=== PATIENT | female | born 1955 | race Caucasian/White ===

== ENCOUNTER 2022-12-16 14:00 | Outpatient (RCR) | payer OTHER, SELFPAY | END 2023-04-15 23:59 | disposition home or self-care (01) | PROVIDERS: PCP Family Medicine; Visit Provider Family Medicine | DX: M25.531 Pain in right wrist (principal); M79.644 Pain in right finger(s); G89.29 Other chronic pain; Z51.89 Encounter for other specified aftercare | CPT/HCPCS: 97035; 97140; 97165; L3806 ==

== ENCOUNTER 2023-04-20 09:55 | Emergency (ER) | payer OTHER, SELFPAY ==
[2023-04-20 09:58] VITALS: BP 165/83; PULSE 62; RESP 18; TEMP 36.8; O2SAT 98; BMI 32.6
--- NOTE | 2023-04-20 10:41 | CRLHL7_ITS ---
For Patients: As a result of the Century Cures Act, medical imaging exams and procedure reports are released immediately into your electronic medical record. You may view this report before your referring provider. If you have questions, please contact your health care provider. INDICATION: Leg pain and swelling. TECHNIQUE: Ultrasound venous duplex lower left extremity. Compression venous exam was performed using hernandez-scale, color Doppler, and spectral Doppler analysis. COMPARISON: None. FINDINGS: Deep veins: Sonographic imaging demonstrates the left common femoral, deep femoral, superficial femoral, popliteal, posterior tibial and the contralateral right common femoral veins to be fully compressible with normal color Doppler blood flow. Superficial veins: Greater saphenous vein is fully compressible. No popliteal cyst. IMPRESSION: Normal left lower extremity venous ultrasound, no sign of deep venous thrombosis. Dictated by Yomi Grande MD @ 04/20/2023 11:56:18 AM (Electronically Signed)
--- NOTE | 2023-04-20 11:12 | ED_ITS ---
HPI - Extremity Injury (Lower) General Date Seen: 04/20/23 Chief Complaint: Extremity Pain/Injury, Lower Stated Complaint: pain in lower left leg Time Seen by Provider: 04/20/23 09:59 Source: patient and family Mode of arrival: ambulatory Limitations: no limitations History of Present Illness HPI Narrative: Patient is a very nice 68-year-old female presents here for evaluation of a left lower leg pain, it comes and goes, worse when she starts to walk but then gets better. She called her insurance carrier and [facility] today and they directed to the ER as they were worried about a clot, she has had no swelling associated with this, she has had a couple longer trips, that she has flown in the last 4 weeks, the discomfort it has been going on for the last 4-6 weeks. She has been told in the past she has peripheral arterial disease. But has never had this looked at. Denies any falls or injury associated with this able to walk around bear weight normally is not taking any medications for this, no past history of previous DVTs pulmonary emboli she has no family history of any blood disorders is on no anticoagulants other than Plavix. Does have a history of hypertension. Denies a history of chest pain shortness of breath syncope, or heart racing. Related Data Home Medications Medication Instructions Recorded Confirmed atorvastatin 20 mg tablet 20 mg PO DAILY 04/20/23 04/20/23 Allergies Allergy/AdvReac Type Severity Reaction Status Date / Time Penicillins Allergy Verified 04/20/23 10:01 Sulfa (Sulfonamide Allergy Verified 04/20/23 10:01 Antibiotics) Review of Systems Status of ROS: Reports: 10 or more systems reviewed and unremarkable except as noted in History and below [facility] Social History Do you use any of these nicotine containing products: None Exam Narrative: Exam Narrative: Patient is a very nice lady appears to be in no apparent distress walking around the room she has normal legs bilaterally with excellent muscle bulk noted. Full extension of her left knee in flexion her hip has normal range of motion. DP and posterior tibial pulses are normal in her left lower leg. In comparison to the right. No trophic changes are noted over her foot, and she has hair growth. I do not see any edema. Const: Vital Signs, click to edit/add: Vital Signs - 24 hr 04/20/23 09:58 Temperature 98.3 F Pulse Rate [Right Pulse Oximeter] 62 Respiratory Rate 18 Blood Pressure [Ri ght Upper Arm] 165/83 H Pulse Oximetry 98 Oxygen Delivery Me thod Room Air Documenting provider has reviewed patient's vital signs: yes Course Course Hospital Course: Reviewed with patient that this x-rays are negative, ultrasound was negative also. Under if this is a variation of phillips splints, and follow-up with primary care suggested. Vital Signs Vital signs: Initial Vital Signs Temperature 98.3 F 04/20/23 09:58 Temperature Source Temporal Artery Scan 04/20/23 09:58 Pulse Rate 62 04/20/23 09:58 Respiratory Rate 18 04/20/23 09:58 Blood Pressure 165/83 H 04/20/23 09:58 Blood Pressure Mean 110 H 04/20/23 09:58 Blood Pressure Position Sitting 04/20/23 09:58 Pulse Oximetry 98 04/20/23 09:58 Oxygen Delivery Method Room Air 04/20/23 09:58 Vital Signs Temperature 98.3 F 04/20/23 09:58 Pulse Rate 62 04/20/23 09:58 Respiratory Rate 18 04/20/23 09:58 Blood Pressure 165/83 H 04/20/23 09:58 Pulse Oximetry 98 04/20/23 09:58 Oxygen Delivery Method Room Air 04/20/23 09:58 Temperature 98.3 F 04/20/23 09:58 Pulse Rate 62 04/20/23 09:58 Respiratory Rate 18 04/20/23 09:58 Blood Pressure 165/83 H 04/20/23 09:58 Pulse Oximetry 98 04/20/23 09:58 Oxygen Delivery Method Room Air 04/20/23 09:58 MDM - Extremity Injury (Lower) MDM Narrative Medical decision making narrative: Going to her that is unlikely to be a DVT, she is able to bear weight walk, he probably should do an x-ray also. Differential Diagnosis Differential diagnosis: Likely ankle sprain and strain and fracture of femur Medical Records Attestation: I reviewed the patient's medical records. Imaging Data Tib fib : Radiologist's impression: Patient: JOSELINE AMBROSE Facility: [facility] . Site : 1955 Study: XRay Extremity Right TIBIA FIBULA 2V-04/20/2023 11:32:23 AM Ordering Physician: Zari Carrera Final Report: Indication: Injury, pain, evaluate for stress fracture Technique: Two views left tibia and fibula Comparison: None Findings: Plantar calcaneal spur is present. There is no joint effusion at the tibiotalar joint. The mortise is intact. Mild degenerative spurring at the medial co mpartment of the knee. No intrinsic osseous lesion or periostitis. No fracture. Impression: No evidence of stress fracture. Dictated by Jose Heredia MD @ 04/20/2023 11:59:27 AM (Electronic Signature) Patient: JOSELINE AMBROSE Facility: [facility] . Site : 1955 Study: US Extremity Left LEV LT-04/20/2023 11:23:35 AM Ordering Physician: Zari Carrera Final Report: INDICATION: Leg pain and swelling. TECHNIQUE: Ultrasound venous duplex lower left extremity. Compression venous exam was performed using hernandez-scale, color Doppler, and spectral Doppler analysis. COMPARISON: None. FINDINGS: Deep veins: Sonographic imaging demonstrates the left common femoral, deep femoral, superficial femoral, popliteal, posterior tibial and the contralateral right common femoral veins to be fully compressible with normal color Doppler blood flow. Superficial veins: Greater saphenous vein is fully compressible. No popliteal cyst. IMPRESSION: Normal left lower extremity venous ultrasound, no sign of deep venous thrombosis. Discharge Plan Discharge Clinical Impression: Left leg pain Patient Disposition: Home, Self-Care Condition: Stable Instructions: Leg Pain (ED) Additional Instructions: Home rest follow-up with primary care no evidence of abnormality on x-ray or ultrasound. Suspect this is muscle related. Prescriptions: No Action atorvastatin 20 mg tablet 20 mg PO DAILY Follow Up/Referrals: Evette Mora MD [Primary Care Provider] - Stand Alone Forms: [employer] Info Instructions
--- NOTE | 2023-04-20 11:16 | CRLHL7_ITS ---
For Patients: As a result of the Cures Act, medical imaging exams and procedure reports are released immediately into your electronic medical record. You may view this report before your referring provider. If you have questions, please contact your health care provider. Indication: Injury, pain, evaluate for stress fracture Technique: Two views left tibia and fibula Comparison: None Findings: Plantar calcaneal spur is present. There is no joint effusion at the tibiotalar joint. The mortise is intact. Mild degenerative spurring at the medial compartment of the knee. No intrinsic osseous lesion or periostitis. No fracture. Impression: No evidence of stress fracture. Dictated by Jose Heredia MD @ 04/20/2023 11:59:27 AM (Electronically Signed)
== END 2023-04-20 13:10 | disposition home or self-care (01) ==
PROVIDERS: Emergency Provider Family Medicine; PCP Family Medicine
DX: M79.605 Pain in left leg (principal)
CPT/HCPCS: 73590; 93971; 99283; 99284

== ENCOUNTER 2024-02-07 12:11 | Outpatient (CLI) | payer MEDICARE, SELFPAY ==
--- OUTSIDE RECORDS SUMMARY | 2024-02-07 12:16 | XMS_ITS | Data Portability ---
Author Name Unknown Address [address] [place] [address] Phone [phone] Organization [place] - .[facility], [facility] Address [address] [place] [address] Assessment Encounter Date Assessment Date Assessment LastModified by Organization Details LastModified Time 05/04/2022 05/04/2022 vertigo with and red flag symptoms no concerning findings on neuro exam pt declined any meds wants maneuver of her head for resolution as was done 15 years ago will refer for vestibular therapy for this in the mean time will send meclizine and pt will decide if she wants to take it or not. [email or web address] Not available 05/04/2022 17:24:22 Plan of Treatment Reminders Order Date Submit Date Provider Last Modified By Organization Details Last Modified Time Details Appointments None recorded. Lab None recorded. Referral vestibular therapy referral 2021 022 MALIK Gunderson MD, [address] [facility], [place], [address], 05:04:35 Procedures None recorded. Surgeries None recorded. Imaging None recorded. Medication Orders meclizine 25 mg tablet 2021 022 [email or web address] [id number], [address], [place], [address], 18:49:33 Patient TargetsNo targets recorded. Patient Instructions Encounter Date Encounter Id Patient Instructions Last Modified By Organization Details Last Modified Time 05/04/2022 [id number] A healthy lifestyle: care instructions [email or web address] Not available 05/05/2022 18:49:33 Thank you for visiting [facility]. There are two ways to view your lab results: : 1. The [employer] jeromy is available to all patients 18 and older in the Jeromy Store and [employer] Play. First-time jeromy users will need to create an account; please note you? ll need to select a login and password for the jeromy versus just using your patient portal login credentials. Your lab results will be posted to the [employer] jeromy as soon as they? re available. 2. Via email , as soon as lab results are available. If you don? t receive an email within the estimated time frame, give our Aftercare team a call at [phone]. Vertigo Your Care Instructions Vertigo is the feeling that you or your surroundings are moving when there is no actual movement. It is often described as a feeling of spinning, whirling, falling, or tilting. Vertigo may make you vomit or feel nauseated. You may have trouble standing or walking and may lose your balance. Vertigo is often related to an inner ear problem, but it can have other more serious causes. If vertigo continues, you may need more tests to find its cause. Follow-up care is a barker part of your treatment and safety. Be sure to make and go to all appointments, and call your doctor if you are having problems. It s also a good idea to know your test results and keep a list of the medicines you take. How can you care for yourself at home? Do not lie flat on your back. Prop yourself up slightly. This may reduce the spinning feeling. Keep your eyes open. Move slowly so that you do not fall. If your doctor recommends medicine, take it exactly as directed. Do not drive while you are having vertigo. Certain exercises, called Trivedi-Daroff exercises, can help decrease vertigo. To do Trivedi-Daroff exercises: Sit on the edge of a bed or sofa and quickly lie down on the side that causes the worst vertigo. Lie on your side with your ear down. Stay in this position for at least 30 seconds or until the vertigo goes away. Sit up. If this causes vertigo, wait for it to stop. Repeat the procedure on the other side. Repeat this 10 times. Do these exercises 2 times a day until the vertigo is gone. When should you call for help? Call 911 anytime you think you may need emergency care. For example, call if: You passed out (lost consciousness). You have symptoms of a stroke. These may include: Sudden numbness, tingling, weakness, or loss of movement in your face, arm, or leg, especially on only one side of your body. Sudden vision changes. Sudden trouble speaking. Sudden confusion or trouble understanding simple statements. Sudden problems with walking or balance. A sudden, severe headache that is different from past headaches. Call your doctor now or seek immediate medical care if: Vertigo occurs with a fever, a headache, or ringing in your ears. You have new or increased nausea and vomiting. Watch closely for changes in your health, and be sure to contact your doctor if: Vertigo gets worse or happens more often. Vertigo has not gotten better after 2 weeks. ELEVATED BLOOD PRESSURE You had a high blood pressure reading today. Today's reading does not always mean that you have hypertension. Many triggers can temporarily raise your blood pressure, including anxiety, pain, and some qsrb-dyx-bdukbfk medications. Hypertension is another name for high blood pressure. High blood pressure may mean that your heart must work harder to pump blood. Blood pressure consists of two numbers, which includes a higher number (systolic) over a lower number (diastolic) (ex: 110/72). Hypertension is diagnosed when you consistently have a systolic blood pressure over 140 and/or a diastolic number over 90. Hypertension is a chronic medical condition that needs follow up with your primary care doctor. If you've never been diagnosed with hypertension, a follow-up blood pressure check is recommended in 2-4 days with your primary care doctor or at a local pharmacy. If the blood pressure remains high, a visit to the doctor is recommended. If you cannot arrange a visit with your doctor or have a primary care doctor, call us so that we can arrange follow-up for you. It is important that you avoid caffeine or any stimulants on the day that your blood pressure is rechecked. If you already have hypertension and are not on medication, but your blood pressure continues to remain high, then a discussion with your primary doctor is highly recommended. If you already on medication but your blood pressure remains high, then an adjustment in medication may be needed. Please schedule a visit with your primary care provider to discuss your plan. As an urgent care provider, we have made our best attempt to diagnose this condition. However, it is important that you follow up with your regular provider for continued care and management. Please contact us with any questions regarding care or treatment. We are here to help. GET HELP RIGHT AWAY IF You have a blood pressure reading with a top number of 180 or higher. You experience a very bad headache. You experience blurred or changing vision. You feel confused. You feel weak, numb, or faint. You get chest or abdominal pain. You begin vomiting. You cannot breathe very well. [email or web address] Not available 05/04/2022 17:24:44 Please make sure to follow up with your primary care physician. Urgent Care is episodic medicine and you will benefit from a strong relationship with your primary physician. If you do not have a primary physician or have any questions related to your visit, please feel free to contact us at [phone]. Thank you for visiting. [email or web address] Not available 05/04/2022 14:18:55 Reason for Referral Vestibular Therapy Referral for Vertigo Referring Physician: Samson Miller, Urgent Care, Encounter Date: 05/04/2022 Problems Name Status Onset Date Resolution Date Notes Provider Name and Address Organization Details Recorded Time Hypercholesterolemia Active 022 JESUSITA Ortiz - .[facility] 14:17:32 Problem Notes None recorded. Medical Equipment None Reported. Allergies Allergen ID Allergen Name Allergen Category Reaction Reaction Severity Criticality Documentation Date Start Date Code Code System Note Provider Name and Address Organization Details Recorded Time 7413634 Medicinal product containin g penicilli n and acting as antibacte rial agent (product) medicatio n Not available Not available Not available 05/04/2022 09582 05 SNOMED JESUSITA Ortiz - .[facility] 14:17:03 [id number] Substance with sulfonami de structure and antibacte rial mechanism of action (substanc e) medicatio n Not available Not available Not available 05/04/2022 [id number] SNOMED JESUSITA Ortiz - .[facility] 14:17:08 Medications Name Sig Start Date Stop Date Status Note LastModified by Organization Details LastModified Time meclizine 25 mg tablet Take 1 tablet 3 times a day by oral route. 022 active Not Available Not Available Not Avai lable atorvastatin active Not Available Not Available Not Available Vitals Date Recorded Body height Body mass index (BMI) Body weight Heart rate Body temperature Respiratory rate Oxygen saturation Oxygen saturation in Arterial blood by Pulse oximetry Systolic blood pressure Diastolic blood pressure Provider Name and Address Organization Details Last Updated DateTime 162.56 cm 32.6 kg/m2 13704.5 5 g 62 /min 97.3 [degF] 18 /min 98 % 98 % 152 mm[Hg] 82 mm[Hg] [facility] 14:19:44 Social History Question Answer Notes LastModified by Organizat ion Details LastModified Time Tobacco Smoking Status Never Smoker JESUSITA Ortiz - .[facility] 05/04/2022 14:17:37 RISK LEVEL - Segmentation Level 1 - Healthy [id number] Information not available 06/05/2022 Sex: Female Functional Status None recorded. Mental Status None recorded. Family History Nothing Reported. Medical History No medical history recorded. Gynecological HistoryNo gynecological history recorded. Obstetrics History GPAL:G 0 P 0 0 0 0 Past Encounters Encounter ID Performer Location Encounter Start Date Encounter Closed Date Diagnosis/Indication Diagnosis [id number] [address] [id number] 05/04/2022 13:16:13 05/04/2022 14:44:00 Vertigo [id number] Health Concerns Section Related Observation LastModified by Organization Detai ls LastModified Time None Recorded Concern Status LastModified by Organization Details LastModified Time None Recorded Advance Directives Directive None Recorded Payers Encounter Date Sequence Insurance Name Policy Number Policy Louis Covered Member ID Louis Member ID Guarantor Name 05/04/2022 2 [employer] (MEDICARE SUPPLEMENT) Lucrecia Giron [id number] Lucrecia Giron 05/04/2022 1 [place] Lucrecia Giron [id number] Lucrecia Giron Notes Date Note Type Note Provider Name and Address Organization Details Recorded Time 05/04/2022 text/html HPI Notes: Vertigo_new Reported by patient. Patient presents with: Vertigo which began a few hours ago Pertinent findings: No change in speech; No chest pain; No diaphoresis; No dizziness with head-turning; No dizziness with standing up; No extremity numbness/weakness ; No fever; No gait abnormality; No head trauma; No headache; No hearing loss; No loss of consciousness; No nausea/vomiting; No neck stiffness; No shortness of breath; No tinnitus; No vision change; (+) dizziness worse with head movement; (+) past history of positional vertigo; (+) sensation of room-spinning pt had vertigo 15 years ago started last night again with head movement feels room spinning in a.m. when wake up. no trevino. no neck pain. no stiff neck. Samson Miller MD [address] [place] [address], [id number] - .[facility] 05/04/2022 17:24:50 OBGyn Episode No OBEpisode recorded.
--- NOTE | 2024-02-07 13:07 | W.ANESCHARGE ---
Anesthesia Charges Start Date/Time Anesthesia Start Date: 02/07/24 Anesthesia Start Time: 13:15 Stop Date/Time Anesthesia Stop Date: 02/07/24 Anesthesia Stop Time: 13:49 Summary Extremes of Age - Over 70 or under 1: MDA
--- NOTE | 2024-02-07 13:50 | W.ANESCHARGE ---
Anesthesia Charges Start Date/Time Anesthesia Start Date: 02/07/24 Anesthesia Start Time: 13:15 Stop Date/Time Anesthesia Stop Date: 02/07/24 Anesthesia Stop Time: 13:49
== END 2024-02-07 12:12 | disposition home or self-care (01) ==
PROVIDERS: PCP Family Medicine; Visit Provider Internal Medicine Gastroenterology
DX: K63.5 Polyp of colon (principal); Z86.010 Personal history of colon polyps
CPT/HCPCS: 00811; 45380; 88305; 99100; J2704